=== PATIENT | male | born 1945 | race Caucasian/White ===

== ENCOUNTER 2024-07-17 06:03 | Inpatient (IN) | payer OTHER, SELFPAY ==
[2024-07-14 13:49] VITALS: BMI 28.8
[2024-07-17] VITALS (22 sets, daily range): BP systolic 94–167; BP diastolic 67–98; PULSE 55–135; RESP 12–21; TEMP 36.2–36.5; O2SAT 92–100; BMI 28.8
--- NOTE | 2024-07-17 | DI.RAD.S_ITS ---
PROCEDURE: XR LUMBAR SPINE 2-3V INDICATIONS: TLIF L4-5, L5-S1 TECHNIQUE: 3 views of the lumbar spine were acquired. COMPARISON: None. FINDINGS: Lumbar spine curvature and alignment: Normal at L3-4 L4-5 L5-S1. Bones: There are no osseous abnormalities. Disc spaces: Intraoperative digital film shows intervertebral spacers, pedicle screws and short interbody struts providing anterior/posterior fusion L4-5 L5-S1. Soft tissues: Possible metallic foreign bodies versus artifact IMPRESSION: L4-5 L5-S1 anterior/posterior fusion near anatomic alignment Dictated by: Wyatt Crowder M.D. on 07/18/2024 at 7:56 Approved by: Wyatt Crowder M.D. on 07/18/2024 at 7:58
--- NOTE | 2024-07-17 07:40 | PM.PREOP ---
Pre-operative Note Interval Note History & Physical reviewed/Exam performed by Physician: Yes Changes to H&P: No
[2024-07-17] MEDS: CEFAZOLIN 2 GM/100 ML PREMIX 100 ML IV ×3 (07:55→23:26)
--- NOTE | 2024-07-17 08:36 | SUR.OPER ---
Simmons attempted with 16fr (too big), 14fr (too big) and 12 fr (still too big). decided no fgoled needed
--- NOTE | 2024-07-17 08:38 | SUR.OPER ---
Prone on spine table, head in foam head support, padded chest and pelvic supports, gel pad at knees, lower legs supported by pillows; nipples, genitalia and toes free of pressure, arms secured on foam padded arm boards at <90 degrees abduction. Tape over blanket at thigh secured to table.
[2024-07-17] MEDS: BUPIVACAINE 0.25% (PF) 60 ML, EPINEPHrine 0.15 MG INJ (08:48)
[2024-07-17] MEDS: BUPIVACAINE LIPOSOME 266 MG/20 ML VIAL INJ (08:48)
[2024-07-17] MEDS: LACTATED RINGERS 1,000 ML 42 ML IV (10:18)
--- NOTE | 2024-07-17 11:53 | P.OP_ITS ---
Operative Date/Time/Diagnoses Date of procedure: 07/17/24 Time of procedure: 07:40 Pre-op diagnosis: 1. L4-5 spondylolisthesis 2. L4-5, L5-S1 spinal stenosis with neurogenic claudication Post-op diagnosis: same Procedure & Clinicians Procedure: 1. L4-5, L5-S1 Postero-lateral and posterior interbody fusion 2. L4-5, L5-S1 interbody cage placement. 3. L4-5, L5-S1 decompressive laminectomy with bilateral facetecomies 4. L4-5, L5-S1 Posterior segmental instrumentation 5. [place] of bone marrow from iliac crest 6. Utilization of microsurgical technique and operating microscope 7. Utilization of robotic assisted navigation Same procedure as scheduled: Yes Indications: Patient has been having chronic back pain and worsening lumbar radiculopathy and symptoms of neurogenic claudication. Patient was found to have severe spinal stenosis at L4-5 L5-S1 with spondylolisthesis at L4-5 correlating with symptoms. Patient failed multiple conservative management with worsening pain weakness and numbness in her lower extremity. Patient has been having difficulty performing activity of daily living. After discussing risks benefits of treatment options, patient elected proceed with surgery. Surgeon: Phu Arevalo Executive Coordinator: Felicity Dillard Click Yes if Unassisted: No Anesthesia Type: General Operative Notes Closure Type: primary Specimen(s): none sent Prosthetic devices, grafts, tissues, transplants, or devices: Globus CREO MIS screws, Rise cages Applied: catheter Estimated Blood Loss (mL): 150 Blood products transfused: none Procedure in detail: Patient was seen in the preoperative area. Risks and benefits of the surgery was discussed with the patient. Informed consent was obtained from the patient and placed in the chart. Surgical site was marked. Patient was taken to the operative room. General anesthesia was administered. Prophylactic antibiotic was given to the patient less than 30 min before the incision was made. Patient was placed into a prone position on the Reagan table. Patient's back was then prepped and draped in the sterile fashion. Time-out was performed at this time. After patient was prepped and draped, patient's PSIS was palpated and marked bilaterally. Small 1 cm incision was made over the PSIS for placement of the reference probes. Two trocar was placed into the PSIS 1 on each side. The reference probe was attached to the trocar of the reference apparatus. At this time the C-arm imaging was used to confirm AP and lateral of L4-L5, L5- S1 vertebrae and merged the C-arm imaging using the GreenWizard robotic navigation system with the CT of the lumbar spine. After successful merging was completed and confirmed, skin marker was used to francie out the skin incision using the GreenWizard robotic arm. Bilateral incision was made at this time. Pre templated trajectory was used and guided using the GreenWizard robotic navigation system for bilateral L4, L5, S1 pedicle screw placement. This was done by using the robotic arm to guide the high-speed bur to make a cortical entry point. Next a drill was placed also using the robotic arm and guided using the navigation system drilling partially through bilateral L4, L5 and S1 pedicles. Next L4, L5, S1 pedicle screws it was pre templated and measured was placed onto the power tour bus driver/guide and inserted into the pedicles bilaterally. After all 6 screws were placed C-arm imaging was taken of both AP and lateral to confi rm the placement. Excellent placement of the screws were confirmed and a matched precisely with the pre planned screw placement using the navigation system. MARs retractor was inserted using [place] (by isePankur)ivation guidence. Globus MARS retractors was placed inside the incision and docked onto the L4 and L5 lamina. Using microsurgical technique and operating microscope, a L4, L5 laminectomy and L4-5, L5-S1 facetectomy was performed using a Kerrison rongeur. The laminectomy and facetectomy was performed in order to decompress patient's cauda equina as well as the nerve roots exiting at the L4-5, L5-S1 level. Patient was found have severe lateral recess and neural foramen stenosis which was fully decompressed after the laminectomy facetectomy. More than 75% of the facets were removed during the process of decompression rendering L4-5, L5-S1 level grossly unstable and required a fusion procedure at the same time. The disc space at L4-5, L5-S1 was identified, and a total diskectomy was performed at L4-5, L5-S1 level. The endplates were decorticated using a rasp and shaver. The total diskectomy and decortication was performed at L4-5, L5-S1 level in order to to accomplish a L4- 5, L5-S1 fusion. The local bone from the laminectomy and facetectomy was saved for local bone grafting. After the total diskectomy and decortication was completed, Viacel bone graft material was combined with local bone that was harvested earlier. At this time, a separate skin is incision was made over the iliac crest. A Jamshidi needle was inserted into the iliac crest through a separate skin in cision. 5 cc of bone marrow aspiration was obtained through the separate skin incision using a Jamshidi needle from the iliac crest. The bone marrow aspiration was combined with local bone and the Viacel bone grafting material. The bone grafting material was placed into the L4-5, L5-S1 interbody space along with a expandable cage. The cage was expanded to its maximum height using the torque limiting screwdriver. The disc preparation as well as the cage insertion were also performed under navigation guidance. After the cage was placed, AP and lateral C-arm imaging was taken to confirm placement of the cage and excellent position was confirmed. Globus MARS retractor was inserted and docked onto the L4-5, L5-S1 posterolateral gutter on the right side. Using the power drill, posterior-la teral decortication was performed at L4-5, L5-S1 level until bleeding cortical bone was identified. The remaining bone grafting material was placed into the L4-5, L5-S1 posterior lateral gutter he order to accomplish posterolateral fusion at the L4-5, L5-S1 level. At this time the tulips were attached to the L4, L5, S1 pedicle screw shanks. After measuring the length of the rods, they were inserted into the tulips of the pedicle screws and locked in place using locking caps and torque limiting screwdriver bilaterally. Total 6 caps and 2 titanium rods was used in order to complete the posterior instrumentation construct. After all the hardware was placed, and confirmed with AP and lateral C-arm imaging, the wound was then irrigated with sterile normal saline and packed with Ray-Alejandro gauze for 3 min to accomplish hemostasis. After the gauze was removed the deep fascia was closed with #1 Vicryl suture. The subcutaneous layer was closed with 2-0 Vicryl. The skin was closed with skin adam. Patient tolerated the procedure well. There were no complications. Neuro monitoring system was used to monitor patient's neurologic status throughout entire procedure. There was no disturbance of the neural monitoring signals throughout the case. Complications: none Post-operative Condition: stable Disposition: PACU Plan for aftercare: Admit to inpatient hospital
[2024-07-17] MEDS: OXYCODONE IR 5 MG TABLET PO ×2 (12:31→22:01)
--- NOTE | 2024-07-17 13:32 | OT.IPNOTE ---
Chart reviewed and nursing consulted. Pt just got up to the floor and is very sleepy at this time. Nursing recommended to hold at this time. Will continue to follow for OT services.
--- NOTE | 2024-07-17 13:40 | PT-IP ANOTE ---
Pt arrives up to floor after spinal surgery. OT checks with nsg before therapists initiate evaluation and nsg reports pt is very sleepy. Con't PT efforts at another time.
[2024-07-17] MEDS: LACTATED RINGERS 1,000 ML 125 ML IV (13:46)
[2024-07-17] MEDS: LORazepam 0.5 MG TABLET PO ×2 (15:47→22:02)
[2024-07-17] MEDS: HYDROMORPHONE 0.5 MG INJ IV (15:47)
--- NOTE | 2024-07-17 16:41 | EKG_ITS ---
[facility] [address] [place] [address] Test Date: 2024-07-17 Pat Name: Kodak López Department: 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
--- NOTE | 2024-07-17 16:51 | DI.RAD.S_ITS ---
PROCEDURE: XR CHEST 1V INDICATIONS: tachycardia TECHNIQUE: One view of the chest was acquired. COMPARISON: None. FINDINGS: Surgical changes and devices: Bilateral shoulder arthroplasties. Lungs and pleura: Lungs are clear. No pleural effusions or pneumothorax. Mediastinum: Mediastinal contours appear normal. Heart size is normal. Bones and chest wall: No suspicious bony lesions. Overlying soft tissues appear unremarkable. IMPRESSION: No acute cardiopulmonary abnormality is seen. Dictated by: Justice Padron M.D. on 07/17/2024 at 17:13 Approved by: Justice Padron M.D. on 07/17/2024 at 17:13
--- NOTE | 2024-07-17 16:54 | PM.CN ---
History of Present Illness Consult details Date Patient Seen: 07/17/24 Time Patient Seen: 17:21 Chief complaint: INPT Narrative: The patient is a 78-year-old male with a history of atrial fibrillation and ablation as well as subsequent PAF. He was on chronic anticoagulation. He was status post a lumbar sacral fusion. The patient had surgery earlier today. In the setting he was noted to have tachycardia. He notes some palpitations, but denies any dyspnea or chest pain. He notes that his ablation improved the frequency of atrial fibrillation but he still has a from time to time. He denies any nausea, or diaphoresis. No leg pain, or swelling. He has been on Pradaxa, this was held for the preoperative phase he will be resumed several days after surgery. EKG indicates a sinus tachycardia with a rate of 127. He also has a chronic right bundle branch block. Meds Home Medications and Allergies Home Medications Medication Instructions Recorded Confirmed Type carvedilol 6.25 mg tablet 6.25 mg PO BID 07/14/24 07/17/24 History dabigatran etexilate 150 mg 150 mg PO BID 07/14/24 07/17/24 History capsule (Pradaxa) furosemide 40 mg tablet (Lasix) 20 mg PO DAILY 07/14/24 07/17/24 History gabapentin 600 mg tablet 600 mg PO BID 07/14/24 07/17/24 History lorazepam 0.5 mg tablet 0.5 mg PO Q6H PRN Anxiety 07/14/24 07/17/24 History potassium chloride 10 mEq 10 meq PO DAILY 07/14/24 07/17/24 History tablet,extended release Allergies Allergy/AdvReac Type Severity Reaction Status Date / Time evolocumab AdvReac ITCHING Verified 07/17/24 06:40 hydralazine AdvReac Verified 07/17/24 06:40 lisinopril AdvReac Cough Verified 07/17/24 06:40 Dlgqmbt-[id number]-EpV Reductase AdvReac Cramping Verified 07/17/24 06:40 Inhibitor of the Muscles Review of Systems Review of Systems Narrative: All else reviewed and otherwise unremarkable except as noted in the history and physical. Exam Vital Signs (past 8 hours): - 07/17/24 12:01 07/17/24 12:06 07/17/24 12:11 Temperature 97.2 F L Pulse Rate 63 59 L 60 Respiratory Rate 14 21 14 Blood Pressure 161/67 H 148/75 H 154/76 H Pulse Oximetry 99 99 100 Oxygen Delivery Method Simple Mask Simple Mask Simple Mask Oxygen Flow Rate 8 8 8 07/17/24 12:30 07/17/24 12:49 07/17/24 13:00 Temperature 97.4 F L Pulse Rate 62 66 61 Respiratory Rate 14 14 12 Blood Pressure 167/85 H 162/71 H 155/85 H Pulse Oximetry 99 98 98 Oxygen Delivery Method Room Air Room Air Oxygen Flow Rate 0 07/17/24 13:30 07/17/24 14:00 07/17/24 15:00 Temperature 97.5 F L 97.7 F 97.6 F Pulse Rate 58 L 67 102 H Respiratory Rate 18 18 12 Blood Pressure 153/88 H 128/95 H 156/95 H Pulse Oximetry 99 92 96 Oxygen Delivery Method Oxygen Flow Rate 0 0 0 07/17/24 15:15 07/17/24 15:30 07/17/24 15:35 Temperature Pulse Rate 114 H 121 H 108 H Respiratory Rate Blood Pressure 125/97 H Pulse Oximetry 100 Oxygen Delivery Method Oxygen Flow Rate 0 07/17/24 15:55 07/17/24 16:00 07/17/24 16:05 Temperature 97.7 F Pulse Rate 120 H 117 H 131 H Respiratory Rate 12 Blood Pressure 139/98 H 139/94 H 149/98 H Pulse Oximetry 100 100 100 Oxygen Delivery Method Oxygen Flow Rate 0 0 0 07/17/24 16:15 Temperature Pulse Rate 130 H Respiratory Rate Blood Pressure 128/81 Pulse Oximetry 100 Oxygen Delivery Method Oxygen Flow Rate 0 Oxygen Delivery Method Room Air Oxygen Flow Rate 0 Narrative Exam Narrative: NAD, alert and oriented, fluent speech, calm. Normocephalic skull, EOMI, anicteric sclera, symmetric pupils. Oropharynx unremarkable, no droop. Neck supple, midline trachea, no adenopathy. Tachycardic. Lungs clear, normal rate and effort. Heart regular, no murmur gallop or rub. Abdomen is soft, non distended and non tender. Extremities are free of edema. Skin is free of rash or lesions. Joints are not swollen or deformed. Judgment appears to be normal. Objective ECG Impression: Sinus tachycardia, 127. [facility] Medical History CKD (chronic kidney disease) Neuropathy Dementia Atrial fibrillation status post cardioversion A-fib MERRICK (obstructive sleep apnea) Hyperlipidemia GERD (gastroesophageal reflux disease) DJD (degenerative joint disease) Arthritis Depression HTN (hypertension) Surgical History H/O carotid endarterectomy (01/12/18) H/O cardiac radiofrequency ablation History of appendectomy History of tonsillectomy and adenoidectomy S/P lens implant H/O bilateral hip replacements H/O total knee replacement H/O shoulder replacement History of nephrectomy, right (~2019) Social History marital status: unmarried,single household members: none Tobacco & Substance Use Smoking Status: Former smoker alcohol intake: current Assessment & Plan Assessment & Plan narrative: 1. Postoperative tachycardia, active. Differential includes hypovolemia, hypoxemia, pulmonary embolism, atelectasis, postoperative VT, or pain. 2. PAF, stable. Was on Pradaxa preoperatively. 3. Hypertension, stable. 4. Hyperlipidemia, stable. Plan: -fluid bolus and monitor heart rate -chest x-ray to rule out acute pulmonary issue. -serial troponin -if tachycardia persists, consider CT PE to rule out pulmonary embolism. Time-Based Coding :: 30 min spent with patient and on the chart (including review of chart, obtaining history, exam, reviewing outside data, placing orders, documenting exam and treatment plan, and counseling patient) on 07/17.
[2024-07-17] MEDS: SODIUM CHLORIDE 0.9% 1,000 ML 1000 ML IV (17:33)
[2024-07-17] MEDS: LORazepam 2 MG/ML INJ 0.5 MG IV (18:21)
[2024-07-17] MEDS: carvediloL 12.5 MG TABLET 6.25 MG PO (20:07)
[2024-07-17] MEDS: GABAPENTIN 600 MG TABLET PO (20:07)
[2024-07-17] MEDS: SODIUM CHLORIDE 0.9% 1,000 ML 125 ML IV (20:08)
[2024-07-17] MEDS: SENNOSIDES 8.6 MG TABLET 17.2 MG PO (20:08)
[2024-07-17] MEDS: DOCUSATE 100 MG CAPSULE PO (22:02)
[2024-07-17] MEDS: CALCIUM CARBONATE 500 MG TAB PO (22:04)
[2024-07-17] MEDS: METOPROLOL TARTRATE 5 MG/5 ML INJ IV (23:26)
[2024-07-18] VITALS (8 sets, daily range): BP systolic 117–158; BP diastolic 49–84; PULSE 63–94; RESP 15–17; TEMP 36.3–36.9; O2SAT 94–98
[2024-07-18 04:05] LABS: Hematocrit 37.9 % (41-53); Hemoglobin 12.5 g/dL (13.5-17.5)
[2024-07-18 04:33] LABS: Troponin I 0.064 ng/mL (0.01-0.034)
[2024-07-18] MEDS: SODIUM CHLORIDE 0.9% 1,000 ML 125 ML IV (05:03)
--- NOTE | 2024-07-18 05:20 | PC.NURSE ---
NOC: Around 3am, pt was asleep and had a 12 second period of asystole noted on tele by ICU, after which pt converted and is now in SR. When PCT arrived at the room pt was awake, A&Ox4, and asymptomatic. Informed MD [place] and charge nurse, will continue to monitor.
[2024-07-18] MEDS: OXYCODONE IR 5 MG TABLET PO ×4 (05:38→20:23)
[2024-07-18] MEDS: HYDROMORPHONE 0.5 MG INJ IV (07:35)
--- NOTE | 2024-07-18 07:41 | DI.ECHO.S_ITS ---
Version: 1 Study ID: [id number] [address] [place] [address] Name: JD BANKS V Study Date: 07/18/2024, 12: 47 PM : 1945 BP: 148 / 80 mmHg Gender: Male Height: 70 in Age: 78 Years Weight: 201 lb BSA: 2.09 mA? Ordering: JOCELYN LANG Referring: JOCELYN LANG Clinician: Tara Trejo Reason For Study: DEMAND ISCHEMIA History: Summary Statements Normal sinus rhythm. Normal LV size and wall thickness. Normal wall motion and LV systolic function. Ejection fraction is 60-65%. NO diastolic dysfunction. Moderate biatrial enlargement. No significant valvular abnormalities. Estimated PA systolic pressure is 46 mmHg assuming right atrial pressure of 8 mmHg. No prior study available for comparison. Procedure: A two-dimensional transthoracic echocardiogram with color flow and Doppler was performed. The study quality was technically adequate. There is no prior echocardiogram noted for this patient. The patient was in sinus rhythm with heart rates between 70-74 bpm during the exam. The patient had occasional PVCs during the exam. Left Ventricle: The left ventricle is normal in size and wall thickness. The ejection fraction is estimated to be 60-65%. Right Ventricle: The right ventricle is normal in size and function. Atria: The left atrium is moderately dilated. The right atrium is moderately dilated. There is no Doppler evidence for an interatrial shunt. Mitral Valve: The mitral valve is normal in structure and function. There is mild to moderate mitral regurgitation. Aortic Valve: The aortic valve is not well visualized. There is no aortic valve stenosis. No aortic regurgitation is present. Tricuspid Valve: The tricuspid valve is normal in structure and function. The right ventricular systolic pressure is estimated to be at least 46 mmHg based on an estimated right atrial pressure of 8 mm Hg. There is mild tricuspid regurgitation. Pulmonic Valve: The pulmonic valve leaflets are thin and pliable; valve motion is normal. There is trace pulmonic regurgitation. Great Vessels: The aortic root is normal size. The dimensions of the ascending aorta are normal. The IVC is dilated (diameter is greater than 2.1 cm) yet it collapses greater than 50% with a sniff. This suggests a right atrial pressure of 8 mm Hg. Pericardium/ Pleura: There is no pericardial effusion. There is no pleural effusion. 2D and M-Mode Measurements and Calculations LVIDd: 4.7 cm LVOT diam: 2.00 cm LVIDs: 2.8 cm Ao root diam: 3.5 cm IVSd: 0.96 cm asc Aorta Diam: 3.8 cm LVPWd: 0.96 cm Ao Arch Diam (Prox Trans): 2.9 cm LV neil. diameter/BSA (cm/m^2): 2.23 LV sys. diameter/BSA (cm/m^2): 1.32 RVD1 (basal): 3.8 cm RVD2 (mid): 2.8 cm TAPSE: 1.81 cm LA A4 area: 26.1 lead inspector? IVC diam: 2.18 cm LA A2 area: 24.7 lead inspector? RA area: 26.7 lead inspector? LA length (vol): 6.7 cm RA long axis: 6.3 cm LA vol: 82.1 ml RA vol: 97.2 ml LA vol index: 39.2 ml/mA? RA : 46.5 ml/mA? Doppler Measurements and Calculations Ao V2 max: 133.1 cm/sec LVOT Max José Miguel: 81.0 cm/sec Ao V2 mean: 100.0 cm/sec LV V1 max P.6 mmHg Ao V2 VTI: 27.0 cm LV V1 VTI: 15.5 cm Ao max P.1 mmHg SV(LVOT): 48.7 ml Ao mean P.3 mmHg MARIXA(I,D): 1.80 lead inspector? MARIXA(V,D): 1.91 lead inspector? MARIXA indexed to BSA (cm^2/m^2): 0.86 sev ratio: 0.57 MV E max josé miguel: 72.3 cm/sec MV dec time: 0.25 sec MV A max josé miguel: 47.6 cm/sec MV E/A: 1.52 Med Peak E' José Miguel: 7.0 cm/sec Lat Peak E' José Miguel: 7.9 cm/sec E/e' average: 9.7 TR max josé miguel: 308.0 cm/sec PA mean P.59 mmHg TR max P.9 mmHg PA V2 max: 76.5 cm/sec MR ERO: 0.14 lead inspector? MR PISA: 1.83 lead inspector? Elizabeth Mantilla M.D. Electronically signed by: Elizabeth Mantilla M.D. 07/18/2024, 5: 47 PM
--- NOTE | 2024-07-18 07:41 | PM.PN.1 ---
Subjective Subjective Interval history: Summary: Seen for postoperative tachycardia with context of PAF but no known history of CAD. Improved with saline bolus. Chest x-ray negative. Very mildly elevated troponins overnight. He did have a long sinus pause and converted into sinus rhythm. S: He is doing well today. No chest pain or dyspnea. He notes a history of nephrectomy for renal cell carcinoma and a chronically elevated troponin. 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 His paresthesias remain present but he notes this will take a while to improve since his back fusion. Exam Vital Signs (past 8 hours): - 07/18/24 00:00 07/18/24 04:00 Temperature 97.3 F L 98.0 F Pulse Rate 63 82 Respiratory Rate 17 16 Blood Pressure 117/69 122/72 Pulse Oximetry 97 98 Oxygen Flow Rate 2 2 Fraction of Inspired Oxygen 28 Oxygen Delivery Method CPAP Oxygen Flow Rate 2 Narrative Exam Narrative: NAD, alert and oriented. Fluent speech. Lungs are clear, normal rate and effort. Heart is regular, no murmur gallop or rub. Abdomen is soft, non distended. Extremities are free of edema. Objective Imaging Chest x-ray: Radiologist's impression: No acute changes. Labs 07/18/24 03:51 Labs: Laboratory Results - last 24 hr 07/17/24 07/18/24 22:20 03:51 Hgb 12.5 L Hct 37.9 L Troponin I 0.040 H 0.064 H PFSH Medical History CKD (chronic kidney disease) Neuropathy Dementia Atrial fibrillation status post cardioversion A-fib MERRICK (obstructive sleep apnea) Hyperlipidemia GERD (gastroesophageal reflux disease) DJD (degenerative joint disease) Arthritis Depression HTN (hypertension) Surgical History H/O carotid endarterectomy (01/12/18) H/O cardiac radiofrequency ablation History of appendectomy History of tonsillectomy and adenoidectomy S/P lens implant H/O bilateral hip replacements H/O total knee replacement H/O shoulder replacement History of nephrectomy, right (~2019) Social History marital status: unmarried,single household members: none Smoking Status: Former smoker alcohol intake: current Assessment & Plan Assessment & Plan narrative: 1. Postoperative tachycardia, active. Differential includes hypovolemia, hypoxemia, pulmonary embolism, atelectasis, postoperative NC, or pain. 2. PAF, stable. Was on Pradaxa preoperatively. 3. Mild troponin elevation consistent with demand ischemia, new and active. 4. Hypertension, stable. 5. Hyperlipidemia, stable. 6. History of nephrectomy for renal cell carcinoma, and chronically elevated troponin. Present on admission and active. Plan: -fluid bolus and monitor heart rate -ECHO to R/O WMA and assess LVEF -serial troponin -add daily ASA 81 mg EMELIA: 07/19 Time-Based Coding :: [TOTAL MINUTES] spent with patient and on the chart (including review of chart, obtaining history, exam, reviewing outside data, placing orders, documenting exam and treatment plan, and counseling patient) on [DATE]. Quality VTE Deep Vein Thrombosis/Pulmonary Embolism Present on Admission: No
--- NOTE | 2024-07-18 07:53 | PM.PNPO.1 ---
Subjective Subjective Date Patient Seen: 07/18/24 Time Patient Seen: 07:53 Interval history: Patient reports moderate to severe pain. Denies shortness of breath or chest pain. No fever chills. No nausea vomiting. Exam Vital Signs (past 8 hours): - 07/18/24 00:00 07/18/24 04:00 Temperature 97.3 F L 98.0 F Pulse Rate 63 82 Respiratory Rate 17 16 Blood Pressure 117/69 122/72 Pulse Oximetry 97 98 Oxygen Flow Rate 2 2 Fraction of Inspired Oxygen 28 Oxygen Delivery Method CPAP Oxygen Flow Rate 2 Narrative Exam Narrative: 78-year-old male resting comfortably in bed in no apparent distress. Neurovascular status is intact bilateral lower extremities. Const General: cooperative and comfortable Nutritional Appearance: average body habitus Orientation: alert Resp Effort & Inspection: normal respiratory effort and able to speak in complete sentences Objective Labs 07/18/24 03:51 Labs: Laboratory Results - last 24 hr 07/17/24 07/18/24 22:20 03:51 Hgb 12.5 L Hct 37.9 L Troponin I 0.040 H 0.064 H PFSH Medical History CKD (chronic kidney disease) Neuropathy Dementia Atrial fibrillation status post cardioversion A-fib MERRICK (obstructive sleep apnea) Hyperlipidemia GERD (gastroesophageal reflux disease) DJD (degenerative joint disease) Arthritis Depression HTN (hypertension) Surgical History H/O carotid endarterectomy (01/12/18) H/O cardiac radiofrequency ablation History of appendectomy History of tonsillectomy and adenoidectomy S/P lens implant H/O bilateral hip replacements H/O total knee replacement H/O shoulder replacement History of nephrectomy, right (~2019) Social History marital status: unmarried,single household members: none Smoking Status: Former smoker alcohol intake: current Assessment & Plan Post-op Postoperative Procedures: Procedures Operation Date: 07/17/24 07:45 Actual Procedure Side Surgeon p L4-5, L5-S1 TLIF-Robot Phu Arevalo MD Postoperative day: 1 Postoperative status narrative: Stable Postoperative plan narrative: Status post L4-L5, L5-S1 fusion Limit bending, twisting, lifting Multimodal pain management Hospitalist consulted July 17, 2024, noted to have postop tachycardia, active, PAF stable, hypertension stable, hyperlipidemia stable appreciate hospitalist recommendations and further workup Disposition to be determined Quality VTE Deep Vein Thrombosis/Pulmonary Embolism Present on Admission: No
[2024-07-18 08:32] LABS: Troponin I 0.064 ng/mL (0.01-0.034)
[2024-07-18] MEDS: carvediloL 12.5 MG TABLET 6.25 MG PO ×2 (10:16→20:22)
[2024-07-18] MEDS: FUROSEMIDE 40 MG TABLET 20 MG PO (10:17)
[2024-07-18] MEDS: DOCUSATE 100 MG CAPSULE PO ×2 (10:17→20:23)
[2024-07-18] MEDS: GABAPENTIN 600 MG TABLET PO ×2 (10:17→20:23)
[2024-07-18] MEDS: LORazepam 0.5 MG TABLET PO ×2 (10:18→17:16)
--- NOTE | 2024-07-18 11:10 | PT.IIE ---
Current Diagnoses Spondylolisthesis, lumbar region (07/17/24) Spinal stenosis, lumbar region with neurogenic claudication (07/17/24) Surgery Performed Operation Date: 07/17/24 07:45 Actual Procedures p L4-5, L5-S1 TLIF-Johan Arevalo MD Surgical History (Last Reviewed 07/17/24 @ 17:22 by Marlon Avalos MD) H/O bilateral hip replacements H/O cardiac radiofrequency ablation H/O carotid endarterectomy (01/12/18) H/O shoulder replacement H/O total knee replacement History of appendectomy History of nephrectomy, right (~2019) History of tonsillectomy and adenoidectomy S/P lens implant Medical History (Last Reviewed 07/17/24 @ 17:22 by Marlon Avalos MD) A-fib Arthritis Atrial fibrillation status post cardioversion CKD (chronic kidney disease) Dementia Depression DJD (degenerative joint disease) GERD (gastroesophageal reflux disease) HTN (hypertension) Hyperlipidemia Neuropathy MERRICK (obstructive sleep apnea) Physical Therapy Inpatient Evaluation/Re-Eval M1 PT/OT-IP Prior Functional Status Start: 07/18/24 12:07 Freq: NEEDED Status: Active Protocol: Document 07/18/24 11:10 AB (Rec: 07/18/24 12:22 AB [id number]) Medical Review Prior Functional Status Medical History Reviewed Yes Communication able to make needs known Mobility and Gait pt stated that he was independent with all mobilities and ambulation without AD Social History Household Members none Living Arrangements Apartment/Condo Number of Floors (Floors) One Floor Number of Stairs To Enter/Railing? no steps to enter Home Environment Standard Height Toilet,Walk in Shower Home Equipment Front Wheel Walker,Hand Held Shower,Grab Bars Near Toilet, Grab Bars In Shower M2 PT-IP Current Condition Start: 07/18/24 12:07 Freq: NEEDED Status: Active Protocol: Document 07/18/24 11:10 AB (Rec: 07/18/24 12:22 AB [id number]) Physical Therapy Current Condition Current Condition Evaluation Date 07/18/24 Treatment Diagnosis s/p L4-5,L5S1 TLIF; difficulty in walking Onset Date 07/17/24 M3 PT-IP Subjective Start: 07/18/24 12:07 Freq: NEEDED Status: Active Protocol: Document 07/18/24 11:10 AB (Rec: 07/18/24 12:22 AB [id number]) Subjective Physical Therapy Visit Type Type Initial Evaluation Visit Start Time 11:10 Visit Stop Time 12:00 Number of HOLTER SCANNING TECHNICIAN Visits 0 Physical Therapy Visit Comments Patient Comments agreeable to do PT Therapy Pain Assessment Pain When Pain Assessed At Rest Pain Present Pain Present Pain Reported Location Back Intensity 6 Scale Used Numeric (0 - 10) Pain Management Techniques Apply Cold,Distraction, Modification of Treatment,Re- positioning,Timing of Activity with Medications M4 PT-IP Mobility and Gait Start: 07/18/24 12:07 Freq: NEEDED Status: Active Protocol: Document 07/18/24 11:10 AB (Rec: 07/18/24 12:22 AB [id number]) PT-Bed Mobility Assessment Rolling Type of Rolling Log Rolling Level of Assist Maximal Assistance,1 Person Assistance,2 Person Assistance Supine to Sit Supine to Sit Maximum Assistance,1 Person Assistance,2 Person Assistance PT-Transfer Assessment Sit to and From Stand Sit to and from Stand Maximum Assistance,1 Person Assistance,2 Person Assistance ,Use of Upper Extremities Equipment Transfer Assistive Device Gait Belt,Front Wheeled Walker Orthotic/Prosthetic Devices or Brace: No Transfers Transfer Destination Chair Transfer Technique ambulated Transfer Ability Level of Assist Moderate Assistance,Maximum Assistance,1 Person Assistance ,Use of Upper Extremities Comments Mobility Comments pt supine in bed and agreeable to do PT. obtained PLOF and home set up. post-op folder provided and reviewed contents . educated pt on back precautions and log roll bed mobility. BP: 133/75. pt is slightly drowsy needing cues to keep eyes open but pt directs his own care and stated that he knows his body and his movement even with his eyes closed. completed supine to sit log roll max A x 1-2 and max cues. attempted going out R side of the bed initially but pt unable and requested to try on L side of the bed. pt often refuses assistance from PT even if pt is unable to move independently after a few tries. educated pt on safety and assistance level. pt eventually agreed to assistance from PT. pt needing increase time to complete all tasks and max cues. pt able to sit on EOB CGA. completed sit to stand max A x 1-2 and max cues and ambulated ~ 8 ft using FWW mod to max A and max cues. pt with (+) L hand tremors. pt presents with stooped posture and unsteady shuffling gait. pt agreed to sit on the chair. positioned pt on the chair. call light and table placed within reach. informed pt regarding SNF rehab and agreed. informed behavioral health case manager. pt prefers to go to [facility] rehab center. Gait Assessment Gait Gait Assistance Required: Moderate Assistance,Maximum Assistance Distance (Feet) 8 Able to Maintain Weight Bearing Status Yes During Gait Assistive Devices Assistive Device Gait Belt,Front Wheeled Walker Orthotic/Prosthetic Devices or Brace: No Gait Deviations General Gait Pattern Ataxic,Decreased Stride Length ,Decreased Feet Clearance, Flexed Trunk,Step-to Gait Factors Limiting Gait Function Factors Limiting Gait Function Decreased Activity Tolerance, Decreased Sensation,Decreased Strength,Difficulty Following Directions,Limited Range of Motion,Pain,Poor Balance,Poor Safety Awareness PT-Balance Assessment Sitting Balance and Reactions Static Sitting Balance Ability Good Dynamic Sitting Balance Ability Fair Standing Balance and Reactions Static Standing Balance Ability Poor Dynamic Standing Balance Ability Poor Device Used FWW M5 PT-IP Objective Assessments Start: 07/18/24 12:07 Freq: NEEDED Status: Active Protocol: Document 07/18/24 11:10 AB (Rec: 07/18/24 12:22 AB [id number]) Orientation Orientation/Cognition Level of Alertness Alert Orientation Name,Place,Situation Safety Awareness Decreased Safety Awareness Memory Description Short Term Impaired,Enlisted Advisor Impaired Gross Range of Motion Lower Extremity ROM Assessment Within Functional Limits Strength Lower Extremity Strength Assessment Left Impaired Hip 3+/5 Knee 4-/5 Sensation Assessment Sensation Sensation Description Paresthesia Comments Sensation Comments chronic paresthesia on B LE ( knees to feet) Muscle Tone Muscle Tone WNL Yes M6 PT-IP Treatment Start: 07/18/24 12:07 Freq: NEEDED Status: Active Protocol: Document 07/18/24 11:10 AB (Rec: 07/18/24 12:22 AB [id number]) Physical Therapy Treatment Education Education Provided Precautions,Weight Bearing Status,Post-Op Packet,Safety M7 PT-IP Assessment and Plan Start: 07/18/24 12:07 Freq: NEEDED Status: Active Protocol: Document 07/18/24 11:10 AB (Rec: 07/18/24 12:22 AB [id number]) PT Summary Assessment and Plan Potential Rehabilitation Potential Fair Status of Condition at Evaluation Evolving Summary Impairments Pain,ROM,Strength,Balance, Coordination,Sensation,Tone, Cognition,Bed Mobility, Transfers,Gait,Activity Tolerance Assessment Summary pt is a 78 y/o M s/p L4-5, L5S1 TLIF POD 1. pt has back precautions. pt requiring max A x 1-2 for bed mobility and transfers using FWW; able to ambulate using FWW mod to max A and max cues. pt lives alone and currently will require 24/7 assist. pt will benefit from SNF rehab. pt agreed to go to SNF and behavioral health case manager informed. will continue to asses pt's progress. Goals Bed Mobility Goal Minimal Assistance Transfer Goal Minimal Assistance,Front Wheeled Walker Gait Goal Minimal Assistance,Front Wheel Walker Gait Distance 100 Other Goals improve bed mobility, transfers, ambulation using FWW mod I ~ 150 ft Days to Meet Goals 5 Frequency of Treatment Frequency Of Treatment Twice a Day Treatment Plan Physical Therapy Treatment Plan Bed Mobility Training,Transfer Training,Gait Training, Therapeutic Exercise,Balance Retraining,Post Op Education, Discharge Planning,Hot or Cold Pack,Neuromuscular Re-ed, Coordination Retraining,Manual Therapy Precautions Lumbar Precautions Log Roll,No Twisting,Limit Bending,Lifting Restriction of 10 lbs,Gait Belt above Incisional Area Recommendations To Nursing Amount of Assist Needed 2 Person Assist Discharge Recommendations PT Discharge Recommendations SNF Rehab Transportation Needs at Discharge Wheelchair/Cabulance
[2024-07-18] MEDS: ASPIRIN EC 81 MG TABLET PO (11:50)
[2024-07-18] MEDS: POTASSIUM CHLORIDE 10 MEQ TAB PO (11:50)
--- NOTE | 2024-07-18 13:00 | PT.IPTN ---
Current Diagnoses Spondylolisthesis, lumbar region (07/17/24) Spinal stenosis, lumbar region with neurogenic claudication (07/17/24) Surgery Performed Operation Date: 07/17/24 07:45 Actual Procedures p L4-5, L5-S1 TLIF-Robot - Phu Arevalo MD Physical Therapy Treatment Note M2 PT-IP Current Condition Start: 07/18/24 12:07 Freq: NEEDED Status: Active Protocol: Document 07/18/24 11:10 AB (Rec: 07/18/24 12:22 AB [id number]) Physical Therapy Current Condition Current Condition Evaluation Date 07/18/24 Treatment Diagnosis s/p L4-5,L5S1 TLIF; difficulty in walking Onset Date 07/17/24 M3 PT-IP Subjective Start: 07/18/24 12:07 Freq: NEEDED Status: Active Protocol: Document 07/18/24 13:27 TS (Rec: 07/18/24 13:47 TS [id number]) Subjective Physical Therapy Visit Type Type Treatment Note Visit Start Time 13:00 Visit Stop Time 13:23 Number of EXPENSE ANALYST Visits 1 Physical Therapy Visit Comments Patient Comments Pt found resting in bed, he is agreeable to PT. Therapy Pain Assessment Pain When Pain Assessed At Rest Pain Present Pain Present Pain Reported M4 PT-IP Mobility and Gait Start: 07/18/24 12:07 Freq: NEEDED Status: Active Protocol: Document 07/18/24 13:27 TS (Rec: 07/18/24 13:47 TS [id number]) PT-Bed Mobility Assessment Supine to Sit Supine to Sit Maximum Assistance,2 Person Assistance Scooting Scooting to Edge of Bed Minimal Assistance PT-Transfer Assessment Sit to and From Stand Sit to and from Stand Moderate Assistance,1 Person Assistance Equipment Transfer Assistive Device Gait Belt,Front Wheeled Walker Orthotic/Prosthetic Devices or Brace: No Comments Mobility Comments Supine to sit MaxA x2, pt demonstrates good carryover of sequencing. He requires Lucinda for scooting to EOB and extra time to complete. STS with FWW x2 ModA, pt unsteady in standing. He ambulates in the room ~15'ModA with FWW. PT sat back in chair, was left with OT. Gait Assessment Gait Gait Assistance Required: Moderate Assistance Distance (Feet) 15 Able to Maintain Weight Bearing Status Yes During Gait Assistive Devices Assistive Device Gait Belt,Front Wheeled Walker Orthotic/Prosthetic Devices or Brace: No Gait Deviations General Gait Pattern Ataxic,Decreased Stride Length ,Decreased Feet Clearance, Flexed Trunk,Step-to Gait Factors Limiting Gait Function Factors Limiting Gait Function Decreased Activity Tolerance, Decreased Sensation,Decreased Strength,Difficulty Following Directions,Limited Range of Motion,Pain,Poor Balance,Poor Safety Awareness PT-Balance Assessment Sitting Balance and Reactions Static Sitting Balance Ability Good Dynamic Sitting Balance Ability Fair Standing Balance and Reactions Static Standing Balance Ability Fair Dynamic Standing Balance Ability Poor Device Used FWW M5 PT-IP Objective Assessments Start: 07/18/24 12:07 Freq: NEEDED Status: Active Protocol: Document 07/18/24 11:10 AB (Rec: 07/18/24 12:22 AB [id number]) Orientation Orientation/Cognition Level of Alertness Alert Orientation Name,Place,Situation Safety Awareness Decreased Safety Awareness Memory Description Short Term Impaired,Chcf Impaired Gross Range of Motion Lower Extremity ROM Assessment Within Functional Limits Strength Lower Extremity Strength Assessment Left Impaired Hip 3+/5 Knee 4-/5 Sensation Assessment Sensation Sensation Description Paresthesia Comments Sensation Comments chronic paresthesia on B LE ( knees to feet) Muscle Tone Muscle Tone WNL Yes M6 PT-IP Treatment Start: 07/18/24 12:07 Freq: NEEDED Status: Active Protocol: Document 07/18/24 13:27 TS (Rec: 07/18/24 13:47 TS [id number]) Physical Therapy Treatment Education Education Provided Precautions,Weight Bearing Status,Post-Op Packet,Safety M7 PT-IP Assessment and Plan Start: 07/18/24 12:07 Freq: NEEDED Status: Active Protocol: Document 07/18/24 13:27 TS (Rec: 07/18/24 13:47 TS [id number]) PT Summary Assessment and Plan Potential Rehabilitation Potential Fair Summary Impairments Pain,ROM,Strength,Balance, Coordination,Sensation,Tone, Cognition,Bed Mobility, Transfers,Gait,Activity Tolerance Progress Towards Goals Slow Progress due to Pain,Slow Progress due to Activity Tolerance Assessment Summary [employer] is making slow progress with his mobility. He requires MaxA x2 for bed mobility. He does demonstrate some carryover of logroll technique. He progressed his gait to ~15'ModA with FWW. He has some slight buckling in his Le's with gait. PT continues to recommend SNF at this time. Goals Bed Mobility Goal Minimal Assistance Transfer Goal Minimal Assistance,Front Wheeled Walker Gait Goal Minimal Assistance,Front Wheel Walker Gait Distance 100 Other Goals improve bed mobility, transfers, ambulation using FWW mod I ~ 150 ft Days to Meet Goals 5 Frequency of Treatment Frequency Of Treatment Twice a Day Treatment Plan Physical Therapy Treatment Plan Bed Mobility Training,Transfer Training,Gait Training, Therapeutic Exercise,Balance Retraining,Post Op Education, Discharge Planning,Hot or Cold Pack,Neuromuscular Re-ed, Coordination Retraining,Manual Therapy Precautions Lumbar Precautions Log Roll,No Twisting,Limit Bending,Lifting Restriction of 10 lbs,Gait Belt above Incisional Area Recommendations To Nursing Amount of Assist Needed 2 Person Assist Discharge Recommendations PT Discharge Recommendations SNF Rehab Transportation Needs at Discharge Wheelchair/Cabulance
--- NOTE | 2024-07-18 13:27 | OT.IP.EVAL ---
Current Diagnoses Spondylolisthesis, lumbar region (07/17/24) Spinal stenosis, lumbar region with neurogenic claudication (07/17/24) Surgery Performed Operation Date: 07/17/24 07:45 Actual Procedures p L4-5, L5-S1 TLIF-Johan Arevalo MD Past Medical History (Last Reviewed 07/17/24 @ 17:22 by Marlon Avalos MD) A-fib Arthritis Atrial fibrillation status post cardioversion CKD (chronic kidney disease) Dementia Depression DJD (degenerative joint disease) GERD (gastroesophageal reflux disease) HTN (hypertension) Hyperlipidemia Neuropathy MERRICK (obstructive sleep apnea) Surgical History (Last Reviewed 07/17/24 @ 17:22 by Marlon Avalos MD) H/O bilateral hip replacements H/O cardiac radiofrequency ablation H/O carotid endarterectomy (01/12/18) H/O shoulder replacement H/O total knee replacement History of appendectomy History of nephrectomy, right (~2019) History of tonsillectomy and adenoidectomy S/P lens implant Occupational Therapy Inpatient Evaluation/Re-Eval M1 PT/OT-IP Prior Functional Status Start: 07/18/24 12:07 Freq: NEEDED Status: Active Protocol: Document 07/18/24 13:25 [facility] (Rec: 07/18/24 13:49 [facility] [id number]) Medical Review Prior Functional Status Medical History Reviewed Yes Communication able to make needs known Mobility and Gait pt stated that he was independent with all mobilities and ambulation without AD Activities of Daily Living and IADL's Pt having difficulty with needs due to pain. Social History Household Members none Living Arrangements Apartment/Condo Number of Floors (Floors) One Floor Number of Stairs To Enter/Railing? no steps to enter Home Environment Standard Height Toilet,Walk in Shower Home Equipment Front Wheel Walker,Hand Held Shower,Grab Bars Near Toilet, Grab Bars In Shower M2 OT-IP Current Condition Start: 07/18/24 13:28 Freq: Status: Active Protocol: Document 07/18/24 13:25 [facility] (Rec: 07/18/24 13:49 [facility] [id number]) Occupational Therapy Current Condition Current Condition Evaluation Date 07/18/24 Treatment Diagnosis L4-S1 TLIF Diagnosis Onset Date 07/17/24 Post Operative Precautions Lumbar Precautions Log Roll,No Twisting,Limit Bending,Lifting Restriction of 10 lbs,Gait Belt above Incisional Area M3 OT- IP Subjective and Pain Start: 07/18/24 13:28 Freq: Status: Active Protocol: Document 07/18/24 13:25 [facility] (Rec: 07/18/24 13:49 [facility] [id number]) OT- Subjective Occupational Therapy Visit Type Type Initial Evaluation Visit Start Time 12:55 Visit Stop Time 13:27 Occupational Therapy Visit Comments Patient Comments Pt agreed to get up to the recliner. Patient/Caregiver Goals To get better. OT Pain Assessment Pain When Pain Assessed During Mobility Pain Present Pain Present Pain Reported Location Back Intensity 6 Scale Used Numeric (0 - 10) M4 OT- IP ADL's Start: 07/18/24 13:28 Freq: Status: Active Protocol: Document 07/18/24 13:25 [facility] (Rec: 07/18/24 13:49 [facility] [id number]) OT [id number] General Evaluation Self-Feeding Ability Independent OT ADL-Grooming Comments OT Grooming Comments Not performed. OT ADL-Oral Care Comments Oral Care Comments NOt performed. OT ADL-Dressing General Eval Lower Body Dressing Ability Maximum Assistance Comments OT Dressing Comments Pt will need assist for LB dressing needs. OT ADL-Toileting General Evaluation Toileting Ability Total Assistance Areas Needing Assistance Empty Catheter or Colostomy Comments OT Toileting Comments Pt has a verma. OT ADL-Bathing Comments OT Bathing Comments Not performed. M5 OT- IP IADL's Start: 07/18/24 13:28 Freq: Status: Active Protocol: Document 07/18/24 13:25 [facility] (Rec: 07/18/24 13:49 [facility] [id number]) OT-Instrumental Activities of Daily Living Deficits IADL Deficits Identified Deficits Home Safety Awareness Home Safety Comments Pt will need assist for all ADL and mobility needs. Pt is also overly groggy at this time . M6 OT- IP Functional Cognition Start: 07/18/24 13:28 Freq: Status: Active Protocol: Document 07/18/24 13:25 [facility] (Rec: 07/18/24 13:49 [facility] [id number]) Cognitive Factors Limiting Selfcare Function Cognitive Ability Level of Alertness Drowsy Patient Orientation Name,Place,Situation Attention Span Ability Capable of Focused Attention, Capable of Sustained Attention Ability to Follow Commands Able to Follow One Step Commands with Increased Time, Able to Follow One Step Commands with Repetition Safety Awareness Decreased Recall of Precautions,Decreased Ability to Apply Precautions Cognitive Comments Cognitive Assessment Comments Pt very groggy and not able to recall all his back precautions at this time. Pt will benefit from continues education and practice for his back precautions for ADL and mobility. M7 OT- IP Mobility and Balance Start: 07/18/24 13:28 Freq: Status: Active Protocol: Document 07/18/24 13:25 [facility] (Rec: 07/18/24 13:49 [facility] [id number]) OT- Bed Mobility Assessment Supine to Sit Supine to Sit Assist Maximum Assistance,2 Person Assistance Scooting Scooting to Edge of Bed Moderate Assistance OT-Transfer Assessment Sit to and From Stand Sit to and from Stand Moderate Assistance,1 Person Assistance Transfers Transfer Ability Moderate Assistance,1 Person Assistance,2 Person Assistance Technique Transfer Destination Bed,Chair Transfer Technique Stand Step Pivot Devices Transfer Assistive Devices Gait Belt,Front Wheeled Walker Comments Mobility Comments MAX AX 2 for bed mobility especially to get his trunk upright from side lying due to his BUE weakness. MODA 1-2 to stand and not the transfer with FWW. Pt a bit shaky and tires quickly. OT- Balance Assessment Sitting Balance and Reactions Static Sitting Balance Ability Good Dynamic Sitting Balance Ability Fair Standing Balance and Reactions Static Standing Balance Ability Poor Dynamic Standing Balance Ability Poor M8 OT- IP Objective Assessments Start: 07/18/24 13:28 Freq: Status: Active Protocol: Document 07/18/24 13:25 [facility] (Rec: 07/18/24 13:49 [facility] [id number]) OT Gross Range of Motion Upper Extremity Range of Motion Assessment Bilaterally Impaired OT Strength Upper Extremity Strength Assessment Bilaterally Impaired M9 OT- IP Assessment and Plan Start: 07/18/24 13:28 Freq: Status: Active Protocol: Document 07/18/24 13:25 [facility] (Rec: 07/18/24 13:49 [facility] [id number]) OT Summary Assessment and Plan Potential Rehabilitation Potential Good Analytic Complexity at Evaluation Low Summary OT Impairments Pain,Strength,Balance, Functional Cognition, Functional Mobility,Grooming, Dressing,Toileting,Bathing, Toilet Transfers,Shower Transfers,Activity Tolerance Progress Towards Goals Slow Progress due to Pain,Slow Progress due to Medical Issues,Slow Progress due to Activity Tolerance,Slow Progress due to Cognition Assessment Summary Pt low complexity and main barriers are pain, needing two person assist for bed mobility, needing reminders to incorporate his back precautions for ADL and mobility needs. Pt will greatly benefit from skilled rehab. Goals Self-Feeding Goal Independent Grooming Goal Independent Dressing Goal Minimal Assistance Toileting Goal Standby Assistance Bathing Goal Minimal Assistance Toilet Transfer Goal Independent Shower Transfer Goal Minimal Assistance Days to Meet Goals 15 Frequency of Treatment Other frequency 5x/week Treatment Plan OT Treatment Plan ADL Training,Functional Cognition Training,Functional Mobility,Patient/Family Education,Discharge Planning Other Treatment Recommendations and Next Practice LB dressing needs. Treatment Focus Discharge Recommendations OT Discharge Recommendations SNF Rehab Transportation Needs at Discharge Wheelchair/Cabulance
--- NOTE | 2024-07-18 15:03 | CM.DANOTE ---
Addendum entered by SHAMIKA Brewster 07/18/24 15:45: Transport arranged for 1300 for Wednesday. OIL PROCESSING TECHNICIAN notified ortho PA and hospitalist on plan. Completed PASRR and placed in chart for ortho team to sign. OIL PROCESSING TECHNICIAN updated pt in room. Pt in agreement with plan to dc tomorrow to [facility]. OIL PROCESSING TECHNICIAN answered questions to best of ability. SL Addendum entered by SHAMIKA Brewster 07/18/24 15:22: Per Farida MOISE from [facility], able to auth for SNF. Auth#[id number]. OIL PROCESSING TECHNICIAN called Deidra from [facility] with Auth number. She will work on arranging transport for pt for tomorrow. SL Original Note: DCP Assessment Note Pt is a 78yo M here following elective TLIF with Dr. Arevalo. Pt is POD1. PCP Jesse Diaz Payer [facility] and self pay OIL PROCESSING TECHNICIAN reviewed EMR. Per PT/OT, rec SNF at this time. OIL PROCESSING TECHNICIAN met with pt in room. 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 Pt lives alone in [place] and original plan was to dc home with significant other and other friend support. However, is mobilizing much worse than anticipated. Pt hopeful for rehab at [facility] prior to returning home. Pt reports his family/girl friend live closest to [facility] and therefore his support network would be easier to access there. ANTONELLA Gi kindly agreed to fax initial referral information to [facility] and information for SNF auth request to [facility]. OIL PROCESSING TECHNICIAN spoke with Deidra from [facility], able to accept whenever we get the [facility] auth. Will work on arranging transport with [facility]. OIL PROCESSING TECHNICIAN faxed CPAP settings to [facility] and Deidra will confirm if default settings is sufficient of an order. OIL PROCESSING TECHNICIAN spoke with [facility] JOSE MARIA Iqbal. Sending to doctors for review for auth. Auth pending. Attempted to convey that [facility] was not contracted with [facility]? Which per Deidra at [facility], they are. Farida will confirm their contracted SNFs. P: [facility] auth pending, dc to [facility] for rehab when medically stable. Transport needed. PASRR needed. CM team will continue to follow closely SHAMIKA Berwster Discharge Planning/Care Management CM Discharge Assessment Start: 07/18/24 14:59 Freq: Status: Active Protocol: Document 07/18/24 14:59 SL (Rec: 07/18/24 15:03 SL [id number]) Discharge Planning Assessment Assigned Computer Equipment Repairer SHAMIKA Glass/Assigned Designee Name nichole Reyes Contact Information [phone] Advance Directives? No History Provided By Patient Prior Living Arrangements Apartment/Condo Household Members none Type of transporation used prior to Drives own vehicle admit Independent with ADL's Yes Is patient alert and oriented? Yes DME Already Rented / Owned FWW / Walker,Other Patient/Family Preference Nursing Home Facility Barriers to Discharge Yes Comment pending [facility] Discharge Plan Nursing Home Facility Transportation Arrangement facility vehicle Referrals Initiated Nursing Home SNF/HH Preference [facility] Has Agency SNF been contacted Yes Whiteboard Updated in Patient Room with Yes name and ext. # of Computer Equipment Repairer Review Status In Process Please Provide Date Initial DC 07/18/24 Assessment Was Performed Next Review Type Continued Stay Review Pre-Anesthesia Assessment Start: 07/14/24 13:49 Freq: Status: Active Protocol: Document 07/14/24 13:49 LB (Rec: 07/14/24 14:48 LB [id number]) Pre-Anesthesia Assessment Patient Information Reviewed Via Phone Assessment Assessment Completed With Patient Diagnostic Results BMP/CMP,CBC,EKG Primary Care Provider Jesse Diaz Medical Clearance Received Not Applicable Seen Specialist in Last 12 Months Yes Specialist Seen Orthopedist Primary Language Turkmen Preferred Language Turkmen Protective Services Officer Required No Height 177.8 cm Weight 91.172 kg Body Mass Index (BMI) 28.8 Hearing Ability Normal Visual Assist Glasses Dentition Type Dental Implants Barriers to Learning None Other Aids No Comment reading only Hx Anesthesia Reactions No Hx Family Anesthesia Reaction No Hx Malignant Hyperthermia No Hx Blood Transfusions No Anesthesia Review Requested No Youth Probation Officer No alcohol intake current alcohol intake frequency 0-2 drinks per day Smoking Status Former smoker Substance Use Type does not use Pain Present Pain Reported Comment Lower back. Musculoskeletal Symptoms Back Pain History of Falling (Recent or History of No ) Patient is completely paralyzed or No completely immobile Comment Will bring walker. Is patient on oxygen? Yes: Bleeds in 2-4 liters with CPAP. Does patient have BLANCO/SOB No Hx Sleep Apnea Yes CPAP/BIPAP use prescribed and used routinely Will Bring CPAP/BIPAP DOS Yes Currently Taking a Beta Cornel Yes: Carvedilol 6.25 mg BID Hx Chest Pain No Hx SOB No Hx Syncope or Dizziness No Anti-Coagulant Therapy Yes: Pradaxa 150mb BID Has a Curing Oven Tender Yes Hx Pacemaker/ICD No Cardiac Clearance Received Not Applicable Dysphagia No Urinary Catheter Present No Hx Urinary Self Catheterization No Diabetes No Hx Drug Resistant Organism No Presence of External or Internal Medical Yes: shoulders, hips, knees, Devices left eye, CPAP. Have you had any close contact with No someone diagnosed with COVID-19? Are you experiencing any of these No symptoms symptoms? Received a COVID vaccine? Yes Received all doses? Yes Marital Status Lives With none Current Living Arrangements Apartment/Condo Number of Stairs To Enter/Railing? No stairs Support System Child/Children,Friend(s) Does the Patient Have Assistance After Yes Surgery Patient Discharge Plan Description Return Home Additional comment Advised 1-2 night LOS per surgeon. Feels Safe in Current Environment Yes Do you have a plan to hurt yourself or No Plan others? Emergency Contact Name Hank López - Emergency Contact PAC Instructions Assistance for 24 hours post- op,Durable medical equipment, Medications to take/avoid, Nasal antibiotic,No ETOH/ petroleum product on skin DOS, NPO,Pre-surgical wash,Sensory aids,Sturdy shoes/comfortable clothes,Do not bring valuables and remove jewelry
[2024-07-18 15:22] LABS: Troponin I 0.056 ng/mL (0.01-0.034)
[2024-07-18] MEDS: SENNOSIDES 8.6 MG TABLET 17.2 MG PO (20:23)
[2024-07-18 20:38] LABS: Troponin I 0.061 ng/mL (0.01-0.034)
[2024-07-19] VITALS: BP 157/79; PULSE 84; RESP 14; TEMP 36.8; O2SAT 98
[2024-07-19 04:00] VITALS: BP 130/82; PULSE 73; RESP 18; TEMP 37; O2SAT 97
--- NOTE | 2024-07-19 07:30 | P.DS_ITS ---
History of Present Illness History of Present Illness Date Patient Seen: 07/19/24 Time Patient Seen: 07:00 Chief complaint: INPT Narrative: Patient has been having chronic back pain and worsening lumbar radiculopathy and symptoms of neurogenic claudication. Patient was found to have severe spinal stenosis at L4-5 L5-S1 with spondylolisthesis at L4-5 correlating with symptoms. Patient failed multiple conservative management with worsening pain weakness and numbness in her lower extremity. Patient has been having difficulty performing activity of daily living. After discussing risks benefits of treatment options, patient elected proceed with surgery. Discharge Providers Provider Date of admission: 07/17/24 06:03 Discharge Date: 07/19/24 Primary care physician: Jesse Diaz MD Consults: 07/17/24 12:52 Consult to Occupational Therapy Evaluate & Treat Comment: Physician Instructions: Evaluate and treat Consult to Physical Therapy Evaluate & Treat Comment: Physician Instructions: Evaluate and Treat 07/17/24 13:44 Consult to Pastoral Services Routine Comment: Lexi Discharge provider: Epifanio Stark PA-C Summary Hospital Course Discharge Diagnosis: 1. L4-5 spondylolisthesis 2. L4-5, L5-S1 spinal stenosis with neurogenic claudication Hospital Course: Procedure: 1. L4-5, L5-S1 Postero-lateral and posterior interbody fusion 2. L4-5, L5-S1 interbody cage placement. 3. L4-5, L5-S1 decompressive laminectomy with bilateral facetecomies 4. L4-5, L5-S1 Posterior segmental instrumentation 5. [place] of bone marrow from iliac crest 6. Utilization of microsurgical technique and operating microscope 7. Utilization of robotic assisted navigation Same procedure as scheduled: Yes Surgeon: Phu Arevalo Forging Dies Final Finisher: Felicity Dillard Click Yes if Unassisted: No Anesthesia Type: General Operative Notes Closure Type: primary Specimen(s): none sent Prosthetic devices, grafts, tissues, transplants, or devices: Globus CREO MIS screws, Rise cages Applied: catheter Estimated Blood Loss (mL): 150 Blood products transfused: none Status at Discharge Cognitive/behavioral status at discharge: oriented Functional status at discharge: uses cane/walker Time Spent with Patient Time spent: Less than 30 minutes Exam Vital Signs (past 8 hours): - 07/19/24 00:00 07/19/24 04:00 Temperature 98.3 F 98.6 F Pulse Rate 84 73 Respiratory Rate 14 18 Blood Pressure 157/79 H 130/82 Pulse Oximetry 98 97 Oxygen Flow Rate 3 3 Fraction of Inspired Oxygen 28 Oxygen Delivery Method CPAP Oxygen Flow Rate 3 Narrative Exam Narrative: Patient is found resting comfortably in bed. No new numbness or tingling in the lower extremities. States overall his preoperative symptoms have improved guarding the lower extremities. He is having difficulty rolling in bed but is working with physical therapy. He is ambitious to progress through rehabilitation that he may return home as soon as possible. Pain is controlled with oral medications. 5/5 strength in hip flexors, quadriceps, hamstrings, DF, PF, EHL right. 4/5 strength in hip flexors, quadriceps, hamstrings, DF, PF, EHL right. Sensation to light touch intact throughout BLE. Calves soft, compressible, nontender. ?Dressing placed intraoperatively CDI. Objective Labs 07/18/24 03:51 Labs: Laboratory Results - last 24 hr 07/18/24 07/18/24 07/18/24 07:48 14:41 20:00 Troponin I 0.064 H 0.056 H 0.061 H PFSH Medical History CKD (chronic kidney disease) Neuropathy Dementia Atrial fibrillation status post cardioversion A-fib MERRICK (obstructive sleep apnea) Hyperlipidemia GERD (gastroesophageal reflux disease) DJD (degenerative joint disease) Arthritis Depression HTN (hypertension) Surgical History H/O carotid endarterectomy (01/12/18) H/O cardiac radiofrequency ablation History of appendectomy History of tonsillectomy and adenoidectomy S/P lens implant H/O bilateral hip replacements H/O total knee replacement H/O shoulder replacement History of nephrectomy, right (~2019) Social History marital status: unmarried,single household members: none Smoking Status: Former smoker alcohol intake: current Discharge Assessment & Plan Assessment and Plan Assessment: Status post TLIF Plan of Treatment: Discharge to SNF. Work with inpatient therapy to assist with ambulation. Multimodal pain control with acetaminophen 500mg q4hr prn and oxycodone q.4 hours PRN. May take Zofran 4 mg Q 8 hours as needed for postoperative nausea. No deep bending or twisting at the waist.? No lifting more than 10 pounds. Follow up in clinic in 2 weeks for wound check. Discharge Plan Discharge Plan Patient Disposition: SNF Transfer to: [facility] Home Discharge orders & Medications Prescriptions: New ondansetron 4 mg Tablet,Disintegrating 4 mg sublingual Q8HR Qty: 10 0RF oxycodone 5 mg Tablet 5 mg PO Q4H PRN (Reason: Pain, Moderate (4-6)) Qty: 40 0RF Continued furosemide [Lasix] 40 mg Tablet 20 mg PO DAILY carvedilol 6.25 mg Tablet 6.25 mg PO BID Rx Instructions: must administer with a meal/food gabapentin 600 mg Tablet 600 mg PO BID potassium chloride 10 mEq Tablet Extended Release 10 meq PO DAILY lorazepam 0.5 mg Tablet 0.5 mg PO Q6H PRN (Reason: Anxiety) dabigatran etexilate [Pradaxa] 150 mg Capsule 150 mg PO BID Follow up/Referrals: Jesse Diaz MD [Primary Care Provider] - Diet/Activity/Treatments Diet: Diet as Tolerated Activity: No deep bending or twisting at the waist. No lifting more than 10 pounds. Skin/Wound/Dressing Care Report to your healthcare provider any signs of infection, such as:: chills, fever, night sweats, unusual drainage and unusual redness Dressing: May shower. Keep dressings as dry as possible. If dressing becomes wet or dirty, may remove and replace with clean, dry gauze. No bathing or otherwise soaking incisions. Do not apply any creams, lotions, or ointments to incisions. Visit Report/Discharge Packet Instructions: DI for Prescription Opioid Use, DI for Transforaminal Lumbar Interbody Fusion Stand Alone Forms: Patient Portal/API, Surgery Discharge Discharge Data Primary Care Provider: Jesse Diaz Quality VTE Deep Vein Thrombosis/Pulmonary Embolism Present on Admission: No
[2024-07-19 08:00] VITALS: BP 144/75; PULSE 69; RESP 16; TEMP 37; O2SAT 98
[2024-07-19] MEDS: FUROSEMIDE 40 MG TABLET 20 MG PO (08:30)
[2024-07-19] MEDS: ACETAMINOPHEN 325 MG TABLET 650 MG PO ×2 (08:30)
[2024-07-19] MEDS: GABAPENTIN 600 MG TABLET PO (08:30)
[2024-07-19] MEDS: ASPIRIN EC 81 MG TABLET PO (08:30)
[2024-07-19] MEDS: carvediloL 12.5 MG TABLET 6.25 MG PO (08:30)
[2024-07-19] MEDS: OXYCODONE IR 5 MG TABLET PO ×2 (08:31→12:17)
[2024-07-19] MEDS: DOCUSATE 100 MG CAPSULE PO (08:31)
[2024-07-19] MEDS: POTASSIUM CHLORIDE 10 MEQ TAB PO (08:31)
--- NOTE | 2024-07-19 09:19 | CM.DPNOTE ---
DCP Note FABRIC PATTERN GRADER reviewed EMR. Per chart, pt cleared to dc to SNF today. Ortho PA signed PASRR and med list. CC Gi kindly agreed to updated METAL ORGAN PIPE MAKER/fax dc information/place med list and PASRR in chart. FABRIC PATTERN GRADER spoke with Maximo from [facility]. All set to take pt today, transport for 1pm. confirmed contracted with [facility]. RN report number [phone]. FABRIC PATTERN GRADER updated RN/gave her report number. FABRIC PATTERN GRADER spoke with pt in room. Agreeable to plan. Reported issues with the mattresses from the hospital. denied other questions or concerns at this time. FABRIC PATTERN GRADER updated Farida Beckett CM on DCP. Appreciative of the update. P: pt to dc to [facility] via [facility] at 1pm today. CM team will continue to follow closely SHAMIKA Brewster
--- NOTE | 2024-07-19 10:52 | PT.IPTN ---
Current Diagnoses Spondylolisthesis, lumbar region (07/17/24) Spinal stenosis, lumbar region with neurogenic claudication (07/17/24) Surgery Performed Operation Date: 07/17/24 07:45 Actual Procedures p L4-5, L5-S1 TLIF-Robot - Phu Arevalo MD Physical Therapy Treatment Note M2 PT-IP Current Condition Start: 07/18/24 12:07 Freq: NEEDED Status: Active Protocol: Document 07/18/24 11:10 AB (Rec: 07/18/24 12:22 AB [id number]) Physical Therapy Current Condition Current Condition Evaluation Date 07/18/24 Treatment Diagnosis s/p L4-5,L5S1 TLIF; difficulty in walking Onset Date 07/17/24 M3 PT-IP Subjective Start: 07/18/24 12:07 Freq: NEEDED Status: Active Protocol: Document 07/19/24 11:18 TS (Rec: 07/19/24 11:27 TS [id number]) Subjective Physical Therapy Visit Type Type Treatment Note Visit Start Time 10:52 Visit Stop Time 11:12 Number of SPECIAL EDUCATION COORDINATOR Visits 2 Physical Therapy Visit Comments Patient Comments Pt found on commode, would like to get up and walk. Pt is agreeable to PT. Therapy Pain Assessment Pain When Pain Assessed At Rest Pain Present Pain Present Pain Reported M4 PT-IP Mobility and Gait Start: 07/18/24 12:07 Freq: NEEDED Status: Active Protocol: Document 07/19/24 11:18 TS (Rec: 07/19/24 11:27 TS [id number]) PT-Transfer Assessment Sit to and From Stand Sit to and from Stand Moderate Assistance,1 Person Assistance Equipment Transfer Assistive Device Gait Belt,Front Wheeled Walker Orthotic/Prosthetic Devices or Brace: No Comments Mobility Comments STS with FWW ModA, pt is slow to stand and has diffiuclty transitioning hands to FWW. He ambulates a short distance in the room ~20'CGA with a slow step to gait. Pt was left back on commode, nursing notified, call light within reach. Gait Assessment Gait Gait Assistance Required: Contact Guard Assist Distance (Feet) 20 Assistive Devices Assistive Device Gait Belt,Front Wheeled Walker Orthotic/Prosthetic Devices or Brace: No Gait Deviations General Gait Pattern Ataxic,Decreased Stride Length ,Decreased Feet Clearance, Flexed Trunk,Step-to Gait Factors Limiting Gait Function Factors Limiting Gait Function Decreased Activity Tolerance, Decreased Sensation,Decreased Strength,Difficulty Following Directions,Limited Range of Motion,Pain,Poor Balance,Poor Safety Awareness PT-Balance Assessment Sitting Balance and Reactions Static Sitting Balance Ability Good Dynamic Sitting Balance Ability Fair Standing Balance and Reactions Static Standing Balance Ability Fair Dynamic Standing Balance Ability Poor Device Used FWW M5 PT-IP Objective Assessments Start: 07/18/24 12:07 Freq: NEEDED Status: Active Protocol: Document 07/18/24 11:10 AB (Rec: 07/18/24 12:22 AB [id number]) Orientation Orientation/Cognition Level of Alertness Alert Orientation Name,Place,Situation Safety Awareness Decreased Safety Awareness Memory Description Short Term Impaired,Hides Inspector Impaired Gross Range of Motion Lower Extremity ROM Assessment Within Functional Limits Strength Lower Extremity Strength Assessment Left Impaired Hip 3+/5 Knee 4-/5 Sensation Assessment Sensation Sensation Description Paresthesia Comments Sensation Comments chronic paresthesia on B LE ( knees to feet) Muscle Tone Muscle Tone WNL Yes M6 PT-IP Treatment Start: 07/18/24 12:07 Freq: NEEDED Status: Active Protocol: Document 07/19/24 11:18 TS (Rec: 07/19/24 11:27 TS [id number]) Physical Therapy Treatment Education Education Provided Precautions,Weight Bearing Status,Post-Op Packet,Safety M7 PT-IP Assessment and Plan Start: 07/18/24 12:07 Freq: NEEDED Status: Active Protocol: Document 07/19/24 11:18 TS (Rec: 07/19/24 11:27 TS [id number]) PT Summary Assessment and Plan Potential Rehabilitation Potential Fair Summary Impairments Pain,ROM,Strength,Balance, Coordination,Sensation,Tone, Cognition,Bed Mobility, Transfers,Gait,Activity Tolerance Progress Towards Goals Slow Progress due to Pain,Slow Progress due to Activity Tolerance Assessment Summary [place] continues to make slow progress with his mobility. He continues to require ModA to stand and has fair/poor balance in standing. He ambulates short distances in the room with a slow step to gait. Did not assess bed mobility due to pt being on commode. He is alert but continues to be groggy and slow with his mobility. PT continues to recommend SNF. Goals Bed Mobility Goal Minimal Assistance Transfer Goal Minimal Assistance,Front Wheeled Walker Gait Goal Minimal Assistance,Front Wheel Walker Gait Distance 100 Other Goals improve bed mobility, transfers, ambulation using FWW mod I ~ 150 ft Days to Meet Goals 5 Frequency of Treatment Frequency Of Treatment Twice a Day Treatment Plan Physical Therapy Treatment Plan Bed Mobility Training,Transfer Training,Gait Training, Therapeutic Exercise,Balance Retraining,Post Op Education, Discharge Planning,Hot or Cold Pack,Neuromuscular Re-ed, Coordination Retraining,Manual Therapy Precautions Lumbar Precautions Log Roll,No Twisting,Limit Bending,Lifting Restriction of 10 lbs,Gait Belt above Incisional Area Recommendations To Nursing Amount of Assist Needed 2 Person Assist Discharge Recommendations PT Discharge Recommendations SNF Rehab Transportation Needs at Discharge Wheelchair/Cabulance
--- NOTE | 2024-07-19 12:53 | PC.NURSE ---
Day shift: RN report called to [facility] Lexy'myla. Hard script included in packet that was sent with transport. All belongings with patient, including CPAP machine. Transport escorted patient to exit via wheelchair.
== END 2024-07-19 12:50 | DRG 454 ==
PROVIDERS: Hospitalist; Internal Medicine; Admitting Provider Orthopaedic Surgery Orthopaedic Surgery of the Spine; PCP Internal Medicine; Referring Provider Orthopaedic Surgery Orthopaedic Surgery of the Spine; Visit Provider Orthopaedic Surgery Orthopaedic Surgery of the Spine
PROC: 0SG00AJ Fusion of Lumbar Vertebral Joint with Interbody Fusion Device, Posterior Approach, Anterior Column, Open Approach (ICD-10-PCS; principal; 2024-07-17 07:45)
DX: M43.10 Spondylolisthesis, site unspecified (principal); I24.89 Other forms of acute ischemic heart disease; I97.191 Other postprocedural cardiac functional disturbances following other surgery; M48.062 Spinal stenosis, lumbar region with neurogenic claudication; R00.1 Bradycardia, unspecified; I45.10 Unspecified right bundle-branch block; M48.07 Spinal stenosis, lumbosacral region; M54.16 Radiculopathy, lumbar region; I48.0 Paroxysmal atrial fibrillation; I10 Essential (primary) hypertension; G47.33 Obstructive sleep apnea (adult) (pediatric); E78.5 Hyperlipidemia, unspecified; Z90.5 Acquired absence of kidney; Z79.01 Long term (current) use of anticoagulants; Z85.528 Personal history of other malignant neoplasm of kidney; Z87.891 Personal history of nicotine dependence
CPT/HCPCS: 36415; 71045; 72100; 76000; 84484; 85014; 85018; 93005; 93010; 93306; 97162; 97165; 97530; 97535; C1713; C9290; J0171; J0330; J0690; J1170; J2060; J2405; J2704; J3010